=== PATIENT | female | born 1955 | race African-American/Black ===

== ENCOUNTER 2016-03-18 10:50 | Emergency (ER) | payer MEDICARE, OTHER ==
[~2016-03-18] VITALS: Ht 175.3 cm; Wt 122.5 kg
[~2016-03-18 10:50] MED LIST: ATENOLOL25 MG ORAL; FUROSEMIDE20 M1 ORAL; IBUPROFEN600 MG ORAL; POTASSIUM99 M4 PO
[2016-03-18] MEDS ORDERED: CLARITIN-D 241 EACH PO (11:31)
[2016-03-18] MEDS ORDERED: VENTOLIN HFA18 GM INH (11:31)
--- NOTE | 2016-03-18 11:35 | Emergency Room Report ---
History of Present Illness General Chief Complaint: Upper Respiratory Illness Source: Patient Present Illness HPI 60 YOF presents with 4-5 days of dry cough, "runny eyes" and nasal congestion, endorsing history of seasonal allergies. + smoker. No asthma/COPD. Denies fever/chills, cough, chest pain, abd pain, urinary complaints. Used to take Claritin with good response but ran out, requesting refill. Son also here in ED with similar symptoms. Allergies: Coded Allergies: ENALAPRILAT (Verified Allergy, Unknown, 01/14/16) Patient History Past Medical History: other - seasonal allergies Past Surgical History: none Pertinent Family History: none Social History: Reports: smoking Last Menstrual Period: na Now: No Immunizations: UTD Reviewed Nursing Documentation: PMH: Agreed, PSxH: Agreed Nursing Documentation-PMH Past Medical History: No History, Except For Hx Hypertension: Yes Review of Systems All Other Systems: negative except mentioned in HPI Physical Exam Vital Signs Date Time Temp Pulse Resp B/P Pulse Ox O2 Delivery O2 Flow Rate FiO2 03/18/16 11:02 98.2 67 18 100/67 97 Room Air Sp02 EP Interpretation: reviewed, normal General Appearance: normal inspection, well appearing, no apparent distress, alert Head: atraumatic ENT: normal ENT inspection, hearing grossly normal, normal pharynx, no angioedema, normal voice, TMs + canals normal, uvula midline, moist mucus membranes Neck: normal inspection, full range of motion, supple, no bony tend Respiratory: normal inspection, lungs clear, normal breath sounds, no rhonchi, no respiratory distress, no retraction, no accessory muscle use, no wheezing Cardiovascular #1: regular rate, rhythm, no edema Gastrointestinal: normal inspection, normal bowel sounds, non tender, soft, no guarding, no hernia Genitourinary: no CVA tenderness Musculoskeletal: normal inspection, back normal, normal range of motion, Lorna' s Sign negative Neurologic: normal inspection, alert, oriented x3, responsive, 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 VSS. Afebrile. No obvious source of bacterial infection in oroharynx, ears, chest Unlikely flu given no myalgias, weakness, fever/chills Rx claritin, ventolin PMD followup as needed DC home Last Vital Signs Date Time Temp Pulse Resp B/P Pulse Ox O2 Delivery O2 Flow Rate FiO2 03/18/16 11:17 68 18 Room Air 03/18/16 11:02 98.2 100/67 97 Status: improved Disposition: HOME, SELF-CARE Condition: Improved Scripts Loratadine/Pseudoephedrine (CLARITIN-D 24 HOUR TABLET) 1 Each Tab.er.24h 1 TAB PO DAILY for 14 Days, #14 TAB Prov: GREG BABB M.D. 03/18/16 Albuterol Sulfate (VENTOLIN HFA) 18 Gm Hfa.aer.ad 2 PUFFS INH EVERY 6 HOURS, #18 GM 0 Refills Prov: GREG BABB M.D. 03/18/16 Patient Instructions: Upper Respiratory Infection, Adult Additional Instructions: - Take claritin as prescribed, as needed for allergy symptoms - Use Albuterol/ventolin as prescribed for cough - Drink plenty of fluids - Follow up with your doctor in 2-3 days GREG BABB M.D. Mar 18, 2016 11:35
[2016-03-18 11:41] VITALS: BP 117/65
== END 2016-03-18 13:01 | disposition home or self-care (01) ==
LOC: EMR 11:20
DX: J40 Bronchitis, not specified as acute or chronic (principal); J06.9 Acute upper respiratory infection, unspecified; F17.200 Nicotine dependence, unspecified, uncomplicated; I10 Essential (primary) hypertension
CPT/HCPCS: 99284

== ENCOUNTER 2017-09-29 09:35 | Emergency (ER) | payer MEDICARE, MEDICAID ==
[~2017-09-29] VITALS: Ht 175.3 cm; Wt 117.9 kg
[~2017-09-29 09:35] MED LIST changes: +CLARITIN-D 241 EACH PO; +VENTOLIN HFA18 GM INH
[2017-09-29 09:47] VITALS: BP 154/88
--- NOTE | 2017-09-29 10:05 | Emergency Room Report ---
History of Present Illness General Chief Complaint: Medication Refill Source: Patient Present Illness HPI Patient present with complaints of ongoing knee pain patient has chronic pain management unfortunately there has been a change with her insurance patient reports that she had seen her pain management physician was told that patient cannot be seen as her insurance had changed Denies any chest pain or shortness of breath denies any back or flank pain patient has continued discomfort to both knees Patient does have a neurologist that she sees and was able to get Soma prescription Patient also reports that she is trying to the seen by a new pain management physician however they are waiting for paperwork and the patient was told that she could not be given a prescription after being seen for the first time Allergies: Coded Allergies: ENALAPRILAT (Verified Allergy, Unknown, 01/14/16) Patient History Past Medical History: see triage record Pertinent Family History: none Now: No Reviewed Nursing Documentation: PMH: Agreed; PSxH: Agreed Nursing Documentation-PMH Hx Cardiac Problems: Yes Hx Hypertension: Yes Review of Systems All Other Systems: negative except mentioned in HPI Physical Exam Vital Signs Date Time Temp Pulse Resp B/P (MAP) Pulse Ox O2 Delivery O2 Flow Rate FiO2 09/29/17 09:39 98.1 63 20 154/88 97 Room Air 98.1 Sp02 EP Interpretation: reviewed, normal General Appearance: well appearing, no apparent distress Head: normocephalic, atraumatic Eyes: bilateral eye PERRL, bilateral eye EOMI ENT: hearing grossly normal, normal pharynx, TMs + canals normal, uvula midline Neck: full range of motion, supple, no meningismus, no bony tend Respiratory: lungs clear, normal breath sounds, no rhonchi, no respiratory distress, no retraction, no accessory muscle use Cardiovascular #1: normal peripheral pulses, regular rate, rhythm, no edema, no gallop, no JVD, no murmur Gastrointestinal: normal bowel sounds, non tender, soft, no mass, no organomegaly, non-distended, no guarding, no hernia, no pulsatile mass, no rebound Genitourinary: no CVA tenderness Musculoskeletal: other - Chronic arthritic changes bilateral knees, patient is ambulatory Neurologic: oriented x3, responsive, director electronics III-XII nml as tested, motor strength/ tone normal, sensory intact Psychiatric: mood/affect normal Skin: normal color, no rash, warm/dry, palpation normal Lymphatic: normal inspection, no adenopathy Medical Decision Making Diagnostic Impression: Primary Impression: Arthralgia ER Course Patient presents with complaints of diffuse bodyaches and mainly bilateral knee joint pain Patient is under pain management at this time There does appear to be some problem with her obtaining appropriate follow-up currently Patient was provided with pain medication here Also prescription medication for home unfortunately restricted medication is diabetic to primary pain management On review of CURES and the safety in prescribing medicine and [facility] patient is referred to primary pain management Last Vital Signs Date Time Temp Pulse Resp B/P (MAP) Pulse Ox O2 Delivery O2 Flow Rate FiO2 09/29/17 09:47 98.1 65 20 154/88 97 Room Air 98.1 Status: improved Disposition: HOME, SELF-CARE Condition: Improved Scripts Acetaminophen (Tylenol) 325 Mg Tablet 650 MG ORAL Q8HR PRN for Prn Pain/Headache/Temp > 101, #15 TAB 0 Refills Prov: Kt Lopez DO 09/29/17 Ibuprofen* (MOTRIN*) 600 Mg Tablet 600 MG ORAL Q8H PRN for For Pain, #20 TAB 0 Refills Prov: Kt Lopez DO 09/29/17 Additional Instructions: Patient is provided with the discharge instructions notified to follow up with primary doctor in the next 2-3 days otherwise return to the er with any worsening symptoms. Please note that this report is being documented using IMRSV technology. This can lead to erroneous entry secondary to incorrect interpretation by the dictating instrument. Kt Lopez DO Sep 29, 2017 10:05
[2017-09-29] MEDS ORDERED: TYLENOL325 MG ORAL (10:07)
[2017-09-29] MEDS ORDERED: IBUPROFEN600 MG ORAL (10:07)
[2017-09-29] MEDS ORDERED: HYDROcodone/Acetamin 10/325 tab ORAL ONE (10:15)
== END 2017-09-29 10:17 | disposition home or self-care (01) ==
LOC: EMR 10:10
DX: M25.562 Pain in left knee (principal); M25.561 Pain in right knee; I10 Essential (primary) hypertension; Z88.8 Allergy status to other drugs, medicaments and biological substances
CPT/HCPCS: 99282

== ENCOUNTER 2017-11-22 16:19 | Emergency (ER) | payer MEDICARE, MEDICAID ==
[~2017-11-22] VITALS: Ht 176.5 cm; Wt 119.3 kg
[~2017-11-22 16:19] MED LIST changes: +TYLENOL325 MG ORAL
[2017-11-22] MEDS ORDERED: Albuterol/Ipratropium 3ml neb HHN ONE (16:45)
[2017-11-22] MEDS ORDERED: guaiFENesin 100mg/5ml Liq ud ORAL ONE (16:45)
[2017-11-22] MEDS ORDERED: GUAIFENESIN DM118 M1 ORAL (16:59)
[2017-11-22] MEDS ORDERED: VENTOLIN HFA18 GM INH (16:59)
[2017-11-22 17:07] VITALS: BP 146/78
--- NOTE | 2017-11-22 22:53 | Emergency Room Report ---
History of Present Illness General Chief Complaint: Upper Respiratory Illness Source: Patient, Medical Record Present Illness HPI Patient is a 62-year-old female presented after increased nasal congestion and as well as some cough. Patient was having nonproductive cough which had been improving gradually over the past few days. The patient stated she had been ill for approximately one week. She reports having prior history of asthma. She is a smoker. She denies any current fever. Allergies: Coded Allergies: ENALAPRILAT (Verified Allergy, Unknown, 01/14/16) Patient History Last Menstrual Period: menopause Reviewed Nursing Documentation: PMH: Agreed; PSxH: Agreed Nursing Documentation-PM Past Medical History: No History, Except For Hx Cardiac Problems: Yes Hx Hypertension: Yes Review of Systems All Other Systems: negative except mentioned in HPI Physical Exam Vital Signs Date Time Temp Pulse Resp B/P (MAP) Pulse Ox O2 Delivery O2 Flow Rate FiO2 11/22/17 16:26 98.3 65 18 146/78 98 Room Air 98.2 Sp02 EP Interpretation: reviewed, normal General Appearance: normal inspection, well appearing, no apparent distress, alert, GCS 15 Head: atraumatic ENT: normal ENT inspection, hearing grossly normal, normal voice Neck: normal inspection, full range of motion, supple, no bony tend Respiratory: normal inspection, no respiratory distress, no retraction, no wheezing Cardiovascular #1: regular rate, rhythm, no edema Gastrointestinal: normal inspection, normal bowel sounds, non tender, soft, no guarding, no hernia Genitourinary: no CVA tenderness Musculoskeletal: normal inspection, back normal, normal range of motion Neurologic: normal inspection, alert, oriented x3, responsive, ekg monitor III-XII nml as tested, speech normal Psychiatric: normal inspection, judgement/insight normal, mood/affect normal Skin: normal inspection, normal color, no rash Medical Decision Making Diagnostic Impression: Primary Impression: Bronchitis ER Course Patient presented for cough. Differential diagnosis included but was not limited to bronchitis, pneumonia, pulmonary embolism, pericarditis, asthma, foreign body. Patient has a benign exam and does not appear to require any further imaging or laboratory testing at this time. The patient presented for upper respiratory symptoms primarily. She does not appear to have any evidence of bacterial infection and she states this is been improving. Patient given prescription for symptomatic treatment. The patient is advised to follow up with primary care doctor in 1-2 days. Patient is advised to return if any worsening condition or if any changes in status that are concerning. This report is dictated with YaSabe automatic trimming sewer software which may occasionally lead to discrepancies related to use of this software. Last Vital Signs Date Time Temp Pulse Resp B/P (MAP) Pulse Ox O2 Delivery O2 Flow Rate FiO2 11/22/17 17:07 98.3 18 146/78 98 Room Air 98.2 11/22/17 16:35 64 Disposition: HOME, SELF-CARE Condition: Stable Scripts Guaifenesin/Dextromethorphan (Guaifenesin Dm Syrup) 5 Ml Syrup 1 TSP ORAL Q8H, #118 ML 0 Refills Prov: James Malloy MD 11/22/17 Albuterol Sulfate (VENTOLIN HFA) 18 Gm Hfa.aer.ad 2 PUFFS INH EVERY 6 HOURS, #18 GM 0 Refills Prov: James Malloy MD 11/22/17 Referrals: NON PHYSICIAN (PCP) Patient Instructions: Acute Bronchitis James Malloy MD Nov 22, 2017 22:53
== END 2017-11-22 18:00 | disposition home or self-care (01) ==
LOC: EMR 17:45
DX: J40 Bronchitis, not specified as acute or chronic (principal); I10 Essential (primary) hypertension; Z88.8 Allergy status to other drugs, medicaments and biological substances
CPT/HCPCS: 99284

== ENCOUNTER 2018-11-11 18:42 | Emergency (ER) | payer MEDICARE, OTHER ==
[~2018-11-11] VITALS: Ht 175.3 cm; Wt 122.5 kg
[~2018-11-11 18:42] MED LIST changes: +ALBUTEROL SULF8.5 GM INH; +GUAIFENESIN DM118 M1 ORAL; +PROMETHAZINE-C118 M1 ORAL; +ZITHROMAX250 MG ORAL
--- NOTE | 2018-11-11 18:58 | NUR ---
ED Nurse Note: Pt from home came in due to right lateral rib pain that started after she was carrying some stuff from laundry. Pt was here and seen d/t coughing and URTI and was DC with Z-rosamaria but was unbale to do CXR. AAO x4 and ambulatory with non labored breathing. Lungs clear.
--- NOTE | 2018-11-11 19:09 | NUR ---
HAND-OFF: Report given to Priyanka KAUFMAN.
[2018-11-11] MEDS ORDERED: Acetaminophen 500mg (ES) tab ORAL ONE (19:15)
[2018-11-11] MEDS ORDERED: TESSALON PERLE100 MG ORAL (19:32)
[2018-11-11] MEDS ORDERED: AMOXICILLIN500 MG ORAL (19:32)
[2018-11-11 19:35] VITALS: BP 133/67
--- NOTE | 2018-11-11 19:35 | NUR ---
ER DISCHARGE NOTE: Patient is cleared to be discharged per ERMD, pt is aox4, on room air, with stable vital signs. pt was given dc and prescription instructions, pt was able to verbalize understanding, pt id band removed. pt is able to ambulate with steady gait. pt took all belongings.
--- NOTE | 2018-11-11 21:45 | Emergency Room Report ---
History of Present Illness General Chief Complaint: Chest Pain Source: Patient Present Illness HPI 63-year-old female presents ED for evaluation. States that she was seen here on 11/05 and was prescribed Z-Yassine for a cough. States that her cough is persisting and she completed the antibiotics. Denies fevers or chills. States cough is productive with yellowish phlegm. States that she was having some pain on the right side of her chest. Worse with coughing. Dull, 5 out of 10. Denies sick contacts or recent travel. Denies shortness of breath. No other aggravating relieving factors. Denies any other associated symptoms Allergies: Coded Allergies: ENALAPRILAT (Verified Allergy, Unknown, 01/14/16) Patient History Past Medical History: HTN Past Surgical History: none Pertinent Family History: none Social History: Denies: smoking, alcohol use, drug use Now: No Immunizations: UTD Reviewed Nursing Documentation: PMH: Agreed; PSxH: Agreed Nursing Documentation-PMH Past Medical History: No History, Except For Hx Cardiac Problems: Yes Hx Hypertension: Yes Review of Systems All Other Systems: negative except mentioned in HPI Physical Exam Vital Signs Date Time Temp Pulse Resp B/P (MAP) Pulse Ox O2 Delivery O2 Flow Rate FiO2 11/11/18 18:48 98.6 72 20 149/87 (107) 98 Room Air Sp02 EP Interpretation: reviewed, normal General Appearance: no apparent distress, alert, GCS 15, non-toxic Head: normocephalic, atraumatic Eyes: bilateral eye normal inspection, bilateral eye PERRL ENT: hearing grossly normal, normal pharynx, no angioedema, normal voice Neck: full range of motion, supple/symm/no masses Respiratory: lungs clear, normal breath sounds, speaking full sentences, other - reproducible R anterior chest wall pain Cardiovascular #1: regular rate, rhythm, no edema Cardiovascular #2: 2+ carotid (R), 2+ carotid (L), 2+ radial (R), 2+ radial (L) , 2+ dorsalis pedis (R), 2+ dorsalis pedis (L) Gastrointestinal: normal bowel sounds, non tender, soft, non-distended, no guarding, no rebound Rectal: deferred Genitourinary: normal inspection, no CVA tenderness Musculoskeletal: back normal, gait/station normal, normal range of motion, non- tender Neurologic: alert, oriented x3, responsive, motor strength/tone normal, sensory intact, speech normal Psychiatric: judgement/insight normal, memory normal, mood/affect normal, no suicidal/homicidal ideation Reflexes: 3+ bicep (R), 3+ bicep (L), 3+ tricep (R), 3+ tricep (L), 3+ knee (R) , 3+ knee (L) Lymphatic: no adenopathy Medical Decision Making Diagnostic Impression: Primary Impression: Atypical pneumonia ER Course Hospital Course 63 yo F presents with R sided chest wall pain, cough Differential diagnoses include: URI, pharyngitis, otitis media, asthma Clinical course Patient placed on stretcher. After initial history, physical exam reveals a middle aged female in no acute distress. Bilateral TM unremarkable. No pharyngeal erythema. No tonsillar exudates. No lymphadenopathy. lungs clear. some reproducible R sided chest wall pain abdomen soft. Ordered Tylenol, EKG, chest x-ray EKGnormal sinus rhythm no acute ischemic changes interpreted by me Chest x-rayno focal consolidation Persistence of symptoms we will continue antibiotics. I will prescribe amoxicillin. Safe for discharge for close outpatient follow-up. I will provide referrals Diagnosis - atypical pneumonia Stable and discharged home with Rx amoxicillin, tessalon perles. Instructed to followup with PMD. Return to ED if symptoms recur or worsen EKG Diagnostic Results Rate: normal Rhythm: NSR ST Segments: no acute changes ASA given to the pt in ED: No Rhythm Strip Diag. Results EP Interpretation: yes Rhythm: NSR, no PVC's, no ectopy Chest X-Ray Diagnostic Results Chest X-Ray Diagnostic Results : Chest X-Ray Ordered: Yes # of Views/Limited/Complete: 1 View Indication: Chest Pain EP Interpretation: Yes Interpretation: no consolidation, no effusion, no pneumothorax, no acute cardiopulmonary disease Impression: No acute disease Electronically Signed by: Electronically signed by Mian Vo MD Last Vital Signs Date Time Temp Pulse Resp B/P (MAP) Pulse Ox O2 Delivery O2 Flow Rate FiO2 11/11/18 19:35 98 18 133/67 92 Room Air 11/11/18 19:35 98.6 Status: improved Disposition: HOME, SELF-CARE Condition: Stable Scripts Benzonatate* (TESSALON PERLE*) 100 Mg Capsule 100 MG ORAL THREE TIMES A DAY for 7 Days, RACQUEL Prov: Mian Vo MD 11/11/18 Amoxicillin* (AMOXIL*) 500 Mg Capsule 500 MG ORAL THREE TIMES A DAY, #21 CAP Prov: Mian Vo MD 11/11/18 Referrals: [facility] Patient Instructions: Community-Acquired Pneumonia, Adult, [id number] Mian Vo MD Nov 11, 2018 21:44
--- NOTE | 2018-11-12 10:45 | Diagnostic Imaging Report ---
Indication: Shortness of breath Technique: One view of the chest Comparison: none Findings: Lungs and pleural spaces are clear. The heart size is normal. The aorta is tortuous. There are degenerative changes of the left shoulder Impression: No acute process
--- NOTE | 2018-11-12 11:31 | Cardiology Report ---
APPROVED REPORT EKG Measurement Heart [id number] Normal sinus rhythm Possible Left atrial enlargement Borderline ECG
== END 2018-11-11 19:35 | disposition home or self-care (01) ==
LOC: EMR 19:00
DX: J18.9 Pneumonia, unspecified organism (principal); I10 Essential (primary) hypertension; Z88.8 Allergy status to other drugs, medicaments and biological substances
CPT/HCPCS: 71045; 93005; 99283